=== PATIENT | female | born 1960 | race Caucasian/White ===

== ENCOUNTER 2024-04-22 15:51 | Emergency (ER) | payer OTHER ==
[~2024-04-22] VITALS: Ht 170.2 cm; Wt 70.5 kg
[2024-04-22] MEDS ORDERED: Tdap Vaccine 0.5 ML SYRINGE IM ONE (17:30)
[2024-04-22 18:03] VITALS: BP 144/96; PULSE 70
== END 2024-04-22 18:13 | disposition home or self-care (01) ==
LOC: COL.ER 15:51
DX: S61.211A Laceration without foreign body of left index finger without damage to nail, initial encounter (principal); W29.3XXA Contact with powered garden and outdoor hand tools and machinery, initial encounter